=== PATIENT | female | born 1960 | race Caucasian/White ===

== ENCOUNTER 2017-12-22 15:01 | Emergency (ER) | payer BC ==
[2017-12-22 15:34] VITALS: BP 145/82
--- NOTE | 2017-12-22 15:43 | UC ---
UC General HPI - HPI Summary HPI Summary: pt is c/o a sore throat, swollen glands and throat pain radiates into her ears. symptoms x 5 days. just returned from vacation and was with 2 family members who had strep throat - History of Current Complaint Chief Complaint: UCRespiratory Stated Complaint: THROAT PAIN Time Seen by Provider: 12/22/17 15:37 Hx Obtained From: Patient Onset/Duration: Gradual Onset Timing: Constant Pain Intensity: 7 Aggravating: swallowing Alleviating: partial with aleve Associated Signs & Symptoms: Negative: Fever - Allergy/Home Medications Allergies/Adverse Reactions: Allergies Allergy/AdvReac Type Severity Reaction Status Date / Time No Known Allergies Allergy Verified 12/22/17 15:28 Home Medications: Home Medications Cetirizine* [ZyrTEC 10 MG TAB*] 1 tab DAILY 12/22/17 [History Confirmed 12/22/17 ] Famotidine TAB* [Pepcid 20 MG TAB*] 1 tab DAILY 12/22/17 [History Confirmed ] Rosuvastatin (NF) [Crestor (NF)] 10 mg PO DAILY 12/22/17 [History Confirmed ] PMH/Surg Hx/FS Hx/Imm Hx - Additional Past Medical History Additional PMH: allergies Endocrine History: Dyslipidemia GI/ History: Gastroesophageal Reflux - Surgical History Surgical History: None - Family History Known Family History: Positive: Other - healthy - Social History Occupation: Employed Full-time Lives: With Family Alcohol Use: Occasionally Substance Use Type: None Smoking Status (MU): Never Smoked Tobacco - Immunization History Vaccination Up to Date: Yes Review of Systems Constitutional: Negative Skin: Negative Eyes: Negative ENT: Sore Throat Respiratory: Negative Cardiovascular: Negative Gastrointestinal: Negative Genitourinary: Negative Motor: Negative Neurovascular: Negative Musculoskeletal: Negative Neurological: Negative Psychological: Negative Is Patient Immunocompromised?: No All Other Systems Reviewed And Are Negative: Yes Physical Exam Triage Information Reviewed: Yes Appearance: Well-Appearing Vital Signs: Initial Vital Signs Temp 97.9 F 12/22/17 15:26 Pulse 84 12/22/17 15:26 Resp 16 12/22/17 15:26 BP 145/82 12/22/17 15:26 Pulse Ox 100 12/22/17 15:26 Vital Signs Reviewed: Yes Eyes: Positive: Conjunctiva Clear ENT: Positive: Pharyngeal erythema, TMs normal. Negative: Nasal congestion, Nasal drainage Neck: Positive: Supple, Tenderness @ - peritonsilar nodes with mild swelling Respiratory: Positive: Lungs clear, Normal breath sounds Cardiovascular: Positive: RRR, No Murmur Abdomen Description: Positive: Nontender, No Organomegaly, Soft Bowel Sounds: Positive: Present Musculoskeletal: Positive: ROM Intact Neurological: Positive: Alert Psychological: Positive: Age Appropriate Behavior Skin Exam: Normal Diagnostics - Laboratory Diagnostic Studies Completed/Ordered: rapid strep=neg; however, pt ill x 5 days with worsening, no uri or cough and had strep throat exposure thus will cover for presumptive bacterial pharyngitis Course/Dx - Differential Dx - Multi-Symptom Provider Diagnoses: pharyngitis Discharge - Sign-Out/Discharge Documenting (check all that apply): Discharge/Admit/Transfer - Discharge Plan Condition: Stable Disposition: HOME Prescriptions: Amoxicillin PO (*) [Amoxicillin 500 MG CAP*] 500 mg PO Q12H #20 cap Patient Education Materials: Pharyngitis (ED) Referrals: Cehly Au MD [Primary Care Provider] - 7 Days - Billing Disposition and Condition Condition: STABLE Disposition: HOME
== END 2017-12-22 16:26 | disposition home or self-care (01) ==
LOC: UCCORT 15:01
DX: J02.9 Acute pharyngitis, unspecified (principal); E78.5 Hyperlipidemia, unspecified; K21.9 Gastro-esophageal reflux disease without esophagitis
CPT/HCPCS: 87651; 99202; G0463